=== PATIENT | female | born 1990 | race Caucasian/White ===

== ENCOUNTER → 2017-10-05 | Outpatient (CLI) | payer BC ==
[2017-10-05 17:03] LABS: ABSOLUTE BASOPHILS # (AUTO) 0.1 10^3/uL (0.0-0.2); ABSOLUTE EOSINOPHILS # (AUTO) 0.1 10^3/uL (0.0-0.6); ABSOLUTE LYMPHOCYTES (AUTO) 2.4 10^3/uL (0.5-4.7); ABSOLUTE MONOCYTES (AUTO) 0.7 10^3/uL (0.1-1.4); BASOPHILS % (AUTO) 0.9 % (0-2); EOSINOPHILS % (AUTO) 0.6 % (0-6); HEMATOCRIT 40.3 % (36.0-47.0); HEMOGLOBIN 13.7 g/dL (12.0-15.5); LYMPHOCYTES % (AUTO) 19.3 % (13-45); MEAN CORPUSCULAR HGB CONC 33.9 g/dL (32.0-36.0); MEAN CORPUSCULAR VOLUME 83 fl (80-97); MONOCYTES % (AUTO) 5.6 % (3-13); PLATELET COUNT 273 10^3/uL (150-450); RED BLOOD COUNT 4.88 10^6/uL (3.72-5.28); RED CELL DISTRIBUTION WIDTH 13.8 % (11.5-14.0); SEGMENTED NEUTROPHILS % (AUTO) 73.6 % (42-78); TOTAL CELLS COUNTED % (AUTO) 100 %; WHITE BLOOD COUNT 12.3 10^3/uL (4.0-10.5)
[2017-10-07 06:39] LABS: HEPATITIS C VIRUS AB <0.1 s/co ratio (0.0-0.9)
[2017-10-07 08:19] LABS: HEPATITS B SURFACE ANTIGEN Negative (Negative)
[2017-10-07 16:39] LABS: HGB A 97.2 % (96.4-98.8); HGB A2 2.8 % (1.8-3.2); HGB SOLUBILITY RESULT Negative (Negative)
== END ==
LOC: LAB 15:58
PROVIDERS: ATTEND Obstetrics & Gynecology
DX: Z34.01 Encounter for supervision of normal first pregnancy, first trimester (principal); Z13.29 Encounter for screening for other suspected endocrine disorder; Z13.0 Encounter for screening for diseases of the blood and blood-forming organs and certain disorders involving the immune mechanism; Z11.3 Encounter for screening for infections with a predominantly sexual mode of transmission; Z12.4 Encounter for screening for malignant neoplasm of cervix
CPT/HCPCS: 36415; 83020; 84443; 85025; 86592; 86701; 86762; 86803; 86804; 86850; 86900; 86901; 87086; 87340; 87491; 87591; 88142

== ENCOUNTER 2018-03-16 16:26 | Outpatient (CLI) | payer BC ==
[2018-03-16 17:12] LABS: ABSOLUTE BASOPHILS # (AUTO) 0.1 10^3/uL (0.0-0.2); ABSOLUTE LYMPHOCYTES (AUTO) 1.9 10^3/uL (0.5-4.7); ABSOLUTE MONOCYTES (AUTO) 0.8 10^3/uL (0.1-1.4); BASOPHILS % (AUTO) 0.4 % (0-2); EOSINOPHILS % (AUTO) 0.2 % (0-6); HEMATOCRIT 31.9 % (36.0-47.0); HEMOGLOBIN 10.5 g/dL (12.0-15.5); MEAN CORPUSCULAR HEMOGLOBIN 25.1 pg (27.0-33.4); MEAN CORPUSCULAR HGB CONC 32.8 g/dL (32.0-36.0); MEAN CORPUSCULAR VOLUME 77 fl (80-97); MONOCYTES % (AUTO) 6.3 % (3-13); PLATELET COUNT 198 10^3/uL (150-450); RED BLOOD COUNT 4.17 10^6/uL (3.72-5.28); RED CELL DISTRIBUTION WIDTH 15.1 % (11.5-14.0); SEGMENTED NEUTROPHILS % (AUTO) 78.1 % (42-78); TOTAL CELLS COUNTED % (AUTO) 100 %; WHITE BLOOD COUNT 12.8 10^3/uL (4.0-10.5)
[2018-03-16 17:18] LABS: APPEARANCE,URINE SLIGHTLY-CLOUDY; BILIRUBIN,URINE NEGATIVE (NEGATIVE); COLOR,URINE YELLOW; GLUCOSE, URINE NEGATIVE (NEGATIVE); KETONES,URINE NEGATIVE (NEGATIVE); LEUKOCYTE ESTERASE,URINE SMALL (NEGATIVE); NITRITE,URINE NEGATIVE (NEGATIVE); PROTEIN,URINE 30 mg/dL (NEGATIVE); URINE SPECIFIC GRAVITY 1.028; UROBILINOGEN,URINE NEGATIVE mg/dL (<2.0)
[2018-03-16 17:31] LABS: ALANINE AMINOTRANSFERASE 21 U/L (9-52); ALBUMIN 3.4 g/dL (3.5-5.0); ALKALINE PHOSPHATASE 142 U/L (38-126); ANION GAP 8 (5-19); ASPARTATE AMINO TRANSFERASE 16 U/L (14-36); BILIRUBIN,DIRECT 0.1 mg/dL (0.0-0.4); BILIRUBIN,TOTAL 0.2 mg/dL (0.2-1.3); BLOOD UREA NITROGEN 10 mg/dL (7-20); CALCIUM 9.3 mg/dL (8.4-10.2); CARBON DIOXIDE 19 mmol/L (22-30); CHLORIDE 108 mmol/L (98-107); GLUCOSE 90 mg/dL (75-110); POTASSIUM 3.9 mmol/L (3.6-5.0); SODIUM 135.4 mmol/L (137-145); TOTAL PROTEIN 5.8 g/dL (6.3-8.2)
[2018-03-16 17:33] LABS: UR PRO/CREAT RATIO RESULT 0.1 mg/mg (0.0-0.2); URINE CREATININE 162.8 mg/dL (16-327); URINE PROTEIN 9.6 mg/dL (<12)
[2018-03-16 17:38] LABS: URINE AMPHETAMINES SCREEN NEGATIVE; URINE BARBITURATES SCREEN NEGATIVE; URINE BENZODIAZEPINES SCREEN NEGATIVE; URINE COCAINE SCREEN NEGATIVE; URINE MARIJUANA (THC) SCREEN NEGATIVE; URINE METHADONE SCREEN NEGATIVE; URINE PHENCYCLIDINE SCREEN NEGATIVE
--- NOTE | 2018-03-16 18:24 | L&D Progress Notes ---
PROGRESS NOTES Datetime Report Generated by CPN: 03/16/2018 18:24 PROGRESS NOTE Procedures- Other: labs Plan Other: pre-eclampsia Vital Signs : Reviewed; Within Normal Limits Comment: Pt here today for pre-eclampsia work up sec to elevated BPs in the office. Avg BP at L_D 140s over 80s. Pt has a mild RIVERA, relieved with Tylenol. 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 She is also c/o bilateral upper flank pain. I believe that the pain is originating from her back and radiating. She believes the same. All of her Pre-e work up is negative. Her diagnosis is Gestational HTN at this time. Her BP is not at treatable ranges at this time. Pt has an appt next week for her 1 hr gtt. Pre-eclampsia precautions given. FETUS A FHR - Baseline: 130s Monitoring: External US Accelerations: 15X15 Decelerations: None FHR Category: Category I : 31.4 SIGNATURE SIGNATURE: 10,[id number] Signature: with User ID: [email or web address]
== END 2018-03-16 18:22 | disposition home or self-care (01) ==
LOC: LC 16:26
PROVIDERS: ATTEND Obstetrics & Gynecology
PROC: 4A1HXCZ Monitoring of Products of Conception, Cardiac Rate, External Approach (ICD-10-PCS; principal; 2018-03-16)
DX: O13.3 Gestational [pregnancy-induced] hypertension without significant proteinuria, third trimester (principal); Z3A.31 31 weeks gestation of pregnancy
CPT/HCPCS: 36415; 80053; 80307; 81005; 82570; 83615; 84156; 84550; 85025

== ENCOUNTER 2018-03-26 16:08 | Outpatient (CLI) | payer BC ==
[2018-03-26 16:52] LABS: URINE AMPHETAMINES SCREEN NEGATIVE; URINE BARBITURATES SCREEN NEGATIVE; URINE BENZODIAZEPINES SCREEN NEGATIVE; URINE COCAINE SCREEN NEGATIVE; URINE MARIJUANA (THC) SCREEN NEGATIVE; URINE METHADONE SCREEN NEGATIVE; URINE PHENCYCLIDINE SCREEN NEGATIVE
[2018-03-26 16:58] LABS: UR PRO/CREAT RATIO RESULT 0.2 mg/mg (0.0-0.2); URINE CREATININE 161.2 mg/dL (16-327); URINE PROTEIN 25.8 mg/dL (<12)
[2018-03-26 17:14] LABS: ABSOLUTE BASOPHILS # (AUTO) 0.1 10^3/uL (0.0-0.2); ABSOLUTE LYMPHOCYTES (AUTO) 2.2 10^3/uL (0.5-4.7); ABSOLUTE MONOCYTES (AUTO) 0.9 10^3/uL (0.1-1.4); ABSOLUTE NEUT (AUTO) 9.2 10^3/uL (1.7-8.2); BASOPHILS % (AUTO) 0.5 % (0-2); EOSINOPHILS % (AUTO) 0.3 % (0-6); HEMATOCRIT 32.2 % (36.0-47.0); HEMOGLOBIN 10.5 g/dL (12.0-15.5); MEAN CORPUSCULAR HEMOGLOBIN 24.7 pg (27.0-33.4); MEAN CORPUSCULAR HGB CONC 32.5 g/dL (32.0-36.0); MEAN CORPUSCULAR VOLUME 76 fl (80-97); MONOCYTES % (AUTO) 6.9 % (3-13); PLATELET COUNT 193 10^3/uL (150-450); RED BLOOD COUNT 4.24 10^6/uL (3.72-5.28); RED CELL DISTRIBUTION WIDTH 15.7 % (11.5-14.0); SEGMENTED NEUTROPHILS % (AUTO) 74.3 % (42-78); TOTAL CELLS COUNTED % (AUTO) 100 %; WHITE BLOOD COUNT 12.4 10^3/uL (4.0-10.5)
[2018-03-26 17:24] LABS: APPEARANCE,URINE TURBID; BILIRUBIN,URINE NEGATIVE (NEGATIVE); COLOR,URINE YELLOW; GLUCOSE, URINE NEGATIVE (NEGATIVE); KETONES,URINE NEGATIVE (NEGATIVE); LEUKOCYTE ESTERASE,URINE NEGATIVE (NEGATIVE); NITRITE,URINE NEGATIVE (NEGATIVE); PROTEIN,URINE 100 mg/dL (NEGATIVE); URINE SPECIFIC GRAVITY 1.028; UROBILINOGEN,URINE NEGATIVE mg/dL (<2.0)
[2018-03-26 17:37] LABS: ALANINE AMINOTRANSFERASE 27 U/L (9-52); ALBUMIN 3.5 g/dL (3.5-5.0); ALKALINE PHOSPHATASE 141 U/L (38-126); ANION GAP 7 (5-19); ASPARTATE AMINO TRANSFERASE 16 U/L (14-36); BILIRUBIN,DIRECT 0.1 mg/dL (0.0-0.4); BILIRUBIN,TOTAL 0.2 mg/dL (0.2-1.3); BLOOD UREA NITROGEN 11 mg/dL (7-20); CALCIUM 9.6 mg/dL (8.4-10.2); CARBON DIOXIDE 21 mmol/L (22-30); CHLORIDE 107 mmol/L (98-107); GLUCOSE 74 mg/dL (75-110); POTASSIUM 4.2 mmol/L (3.6-5.0); SODIUM 135.3 mmol/L (137-145); TOTAL PROTEIN 6.1 g/dL (6.3-8.2); URIC ACID 3.8 mg/dL (2.5-6.2)
--- NOTE | 2018-03-26 18:42 | Non Stress Test Report ---
Non Stress Test Datetime Report Generated by CPN: 03/26/2018 18:41 DEMOGRAPHIC EGA NST: 33.0 INDICATION Indication for Study: Ordered by Provider Indication for Study (NST) Other: pre e work up MONITORING Monitor Explained: Monitor Explained; Test Explained; Patient Verbalized Understanding Time on Monitor: 03/26/2018 16:27 Time off Monitor: 03/26/2018 18:12 NST Duration: 105 NST INTERVENTIONS NST Interventions: None Physician Notified NST: Dr. Stevens BABY A: [id number] BABY A Movement : Present Contraction Frequency : irregular FHR Baseline : 135 Accelerations : 15X15 Decelerations : None Variability : Moderate 6-25bpm NST Review: Meets Criteria for Reactive NST NST Review and Verified By : JESSE Garcia Results: Reactive NST REPORT Report Trigger: Send Report
== END 2018-03-26 18:23 | disposition home or self-care (01) ==
LOC: LC 16:08
PROVIDERS: ATTEND Obstetrics & Gynecology Gynecology
PROC: 4A1HXCZ Monitoring of Products of Conception, Cardiac Rate, External Approach (ICD-10-PCS; principal; 2018-03-26)
DX: O12.03 Gestational edema, third trimester (principal); O26.893 Other specified pregnancy related conditions, third trimester; R10.13 Epigastric pain; Z3A.33 33 weeks gestation of pregnancy
CPT/HCPCS: 36415; 59025; 80053; 80307; 81001; 82570; 83615; 84156; 84550; 85025

== ENCOUNTER 2018-03-30 08:43 | Outpatient (CLI) | payer BC ==
[2018-03-30 09:39] LABS: APPEARANCE,URINE CLEAR; BILIRUBIN,URINE NEGATIVE (NEGATIVE); COLOR,URINE DARK YELLOW; GLUCOSE, URINE NEGATIVE (NEGATIVE); KETONES,URINE NEGATIVE (NEGATIVE); LEUKOCYTE ESTERASE,URINE SMALL (NEGATIVE); NITRITE,URINE NEGATIVE (NEGATIVE); PROTEIN,URINE 100 mg/dL (NEGATIVE); URINE SPECIFIC GRAVITY 1.028; UROBILINOGEN,URINE NEGATIVE mg/dL (<2.0)
[2018-03-30 09:54] LABS: ABSOLUTE LYMPHOCYTES (AUTO) 1.2 10^3/uL (0.5-4.7); ABSOLUTE MONOCYTES (AUTO) 0.5 10^3/uL (0.1-1.4); ABSOLUTE NEUT (AUTO) 9.6 10^3/uL (1.7-8.2); BASOPHILS % (AUTO) 0.2 % (0-2); EOSINOPHILS % (AUTO) 0.2 % (0-6); HEMATOCRIT 31.2 % (36.0-47.0); HEMOGLOBIN 10.1 g/dL (12.0-15.5); MEAN CORPUSCULAR HEMOGLOBIN 24.9 pg (27.0-33.4); MEAN CORPUSCULAR HGB CONC 32.3 g/dL (32.0-36.0); MEAN CORPUSCULAR VOLUME 77 fl (80-97); MONOCYTES % (AUTO) 4.3 % (3-13); PLATELET COUNT 178 10^3/uL (150-450); RED BLOOD COUNT 4.04 10^6/uL (3.72-5.28); RED CELL DISTRIBUTION WIDTH 15.8 % (11.5-14.0); SEGMENTED NEUTROPHILS % (AUTO) 84.3 % (42-78); TOTAL CELLS COUNTED % (AUTO) 100 %; WHITE BLOOD COUNT 11.3 10^3/uL (4.0-10.5)
[2018-03-30 10:02] LABS: UR PRO/CREAT RATIO RESULT 0.2 mg/mg (0.0-0.2); URINE CREATININE 288.2 mg/dL (16-327); URINE PROTEIN 67.5 mg/dL (<12)
[2018-03-30 10:08] LABS: ALANINE AMINOTRANSFERASE 14 U/L (9-52); ALBUMIN 3.1 g/dL (3.5-5.0); ALKALINE PHOSPHATASE 117 U/L (38-126); ANION GAP 6 (5-19); ASPARTATE AMINO TRANSFERASE 16 U/L (14-36); BILIRUBIN,DIRECT 0.2 mg/dL (0.0-0.4); BILIRUBIN,TOTAL 0.3 mg/dL (0.2-1.3); BLOOD UREA NITROGEN 10 mg/dL (7-20); CALCIUM 9.3 mg/dL (8.4-10.2); CARBON DIOXIDE 22 mmol/L (22-30); CHLORIDE 108 mmol/L (98-107); GLUCOSE 110 mg/dL (75-110); POTASSIUM 3.9 mmol/L (3.6-5.0); SODIUM 135.8 mmol/L (137-145); TOTAL PROTEIN 5.7 g/dL (6.3-8.2); URIC ACID 4.1 mg/dL (2.5-6.2)
[2018-03-30 10:12] LABS: URINE AMPHETAMINES SCREEN NEGATIVE; URINE BARBITURATES SCREEN NEGATIVE; URINE BENZODIAZEPINES SCREEN NEGATIVE; URINE COCAINE SCREEN NEGATIVE; URINE MARIJUANA (THC) SCREEN NEGATIVE; URINE METHADONE SCREEN NEGATIVE; URINE PHENCYCLIDINE SCREEN NEGATIVE
--- NOTE | 2018-03-30 11:08 | Non Stress Test Report ---
Non Stress Test Datetime Report Generated by CPN: 03/30/2018 11:08 DEMOGRAPHIC EGA NST: 33.4 INDICATION Indication for Study: Ordered by Provider MONITORING Monitor Explained: Monitor Explained; Test Explained; Patient Verbalized Understanding Monitor Explained Other: see flowsheet Time on Monitor: 03/30/2018 09:36 Time off Monitor: 03/30/2018 09:56 NST Duration: 20 NST INTERVENTIONS NST Interventions: None Physician Notified NST: C. Mcleod, CNM BABY A: [id number] BABY A Movement : Present Contraction Frequency : none FHR Baseline : 135 Accelerations : 15X15 Decelerations : None Variability : Moderate 6-25bpm NST Review: Meets Criteria for Reactive NST NST Review and Verified By : YONI GAYLE RN NST Results: Reactive NST REPORT Report Trigger: Send Report
== END 2018-03-30 11:00 | disposition home or self-care (01) ==
LOC: LC 08:43
PROVIDERS: ATTEND Obstetrics & Gynecology Gynecology
PROC: 4A1HXCZ Monitoring of Products of Conception, Cardiac Rate, External Approach (ICD-10-PCS; principal; 2018-03-30)
DX: O14.93 Unspecified pre-eclampsia, third trimester (principal); Z3A.33 33 weeks gestation of pregnancy
CPT/HCPCS: 36415; 59025; 80053; 80307; 81001; 82570; 83615; 84156; 84550; 85025

== ENCOUNTER 2018-04-02 20:55 | Outpatient (CLI) | payer BC ==
[2018-04-02] MEDS ORDERED: BUTALB/ACETAMINOPHEN/CAFFEINE 1 TAB EACH ONE (21:20)
[2018-04-02 21:37] LABS: ABSOLUTE LYMPHOCYTES (AUTO) 1.9 10^3/uL (0.5-4.7); ABSOLUTE MONOCYTES (AUTO) 0.8 10^3/uL (0.1-1.4); ABSOLUTE NEUT (AUTO) 9.9 10^3/uL (1.7-8.2); BASOPHILS % (AUTO) 0.2 % (0-2); EOSINOPHILS % (AUTO) 0.2 % (0-6); HEMATOCRIT 28.6 % (36.0-47.0); HEMOGLOBIN 9.5 g/dL (12.0-15.5); LYMPHOCYTES % (AUTO) 14.8 % (13-45); MEAN CORPUSCULAR HEMOGLOBIN 25.1 pg (27.0-33.4); MEAN CORPUSCULAR VOLUME 76 fl (80-97); MONOCYTES % (AUTO) 6.4 % (3-13); PLATELET COUNT 163 10^3/uL (150-450); RED BLOOD COUNT 3.77 10^6/uL (3.72-5.28); RED CELL DISTRIBUTION WIDTH 16.1 % (11.5-14.0); SEGMENTED NEUTROPHILS % (AUTO) 78.4 % (42-78); TOTAL CELLS COUNTED % (AUTO) 100 %; WHITE BLOOD COUNT 12.6 10^3/uL (4.0-10.5)
[2018-04-02 21:37] LABS: APPEARANCE,URINE SLIGHTLY-CLOUDY; BILIRUBIN,URINE NEGATIVE (NEGATIVE); COLOR,URINE YELLOW; GLUCOSE, URINE NEGATIVE (NEGATIVE); KETONES,URINE NEGATIVE (NEGATIVE); LEUKOCYTE ESTERASE,URINE NEGATIVE (NEGATIVE); NITRITE,URINE NEGATIVE (NEGATIVE); PROTEIN,URINE >=500 mg/dL (NEGATIVE); URINE SPECIFIC GRAVITY 1.019; UROBILINOGEN,URINE NEGATIVE mg/dL (<2.0)
[2018-04-02 21:52] LABS: ALANINE AMINOTRANSFERASE 23 U/L (9-52); ALBUMIN 3.1 g/dL (3.5-5.0); ALKALINE PHOSPHATASE 123 U/L (38-126); ANION GAP 6 (5-19); ASPARTATE AMINO TRANSFERASE 15 U/L (14-36); BILIRUBIN,DIRECT 0.1 mg/dL (0.0-0.4); BILIRUBIN,TOTAL 0.2 mg/dL (0.2-1.3); BLOOD UREA NITROGEN 12 mg/dL (7-20); CALCIUM 9.4 mg/dL (8.4-10.2); CARBON DIOXIDE 22 mmol/L (22-30); CHLORIDE 108 mmol/L (98-107); GLUCOSE 111 mg/dL (75-110); POTASSIUM 3.9 mmol/L (3.6-5.0); SODIUM 135.5 mmol/L (137-145); TOTAL PROTEIN 5.6 g/dL (6.3-8.2); URIC ACID 4.3 mg/dL (2.5-6.2)
[2018-04-02 21:54] LABS: URINE CREATININE 90.7 mg/dL (16-327)
[2018-04-02 22:05] LABS: URINE AMPHETAMINES SCREEN NEGATIVE; URINE BARBITURATES SCREEN NEGATIVE; URINE BENZODIAZEPINES SCREEN NEGATIVE; URINE COCAINE SCREEN NEGATIVE; URINE MARIJUANA (THC) SCREEN NEGATIVE; URINE METHADONE SCREEN NEGATIVE; URINE PHENCYCLIDINE SCREEN NEGATIVE
[2018-04-02 22:15] LABS: UR PRO/CREAT RATIO RESULT 4.4 mg/mg (0.0-0.2); URINE PROTEIN 397.8 mg/dL (<12)
--- NOTE | 2018-04-02 23:05 | Non Stress Test Report ---
Non Stress Test Datetime Report Generated by CPN: 04/02/2018 23:05 DEMOGRAPHIC Test Number: 3 EGA NST: 34.0 INDICATION Indication for Study: Ordered by Provider URINE RESULTS Urine Glucose - NST: Positive MONITORING Monitor Explained: Monitor Explained; Test Explained; Patient Verbalized Understanding Time on Monitor: 04/02/2018 21:07 Time off Monitor: 04/02/2018 22:38 NST Duration: 91 NST INTERVENTIONS NST Interventions: PO Hydration; Reposition Patient Physician Notified NST: Dr. Douglas BABY A: [id number] BABY A Movement : Present Contraction Frequency : rare FHR Baseline : 135 Accelerations : 15X15 Decelerations : None Variability : Moderate 6-25bpm NST Review: Meets Criteria for Reactive NST NST Review and Verified By : Victor Hugo Lopez RN NST Results: Reactive NST REPORT Report Trigger: Send Report
== END 2018-04-02 22:53 | disposition home or self-care (01) ==
LOC: LC 20:55
PROVIDERS: ATTEND Obstetrics & Gynecology
PROC: 4A1HXCZ Monitoring of Products of Conception, Cardiac Rate, External Approach (ICD-10-PCS; principal; 2018-04-02)
DX: O14.93 Unspecified pre-eclampsia, third trimester (principal); Z3A.34 34 weeks gestation of pregnancy
CPT/HCPCS: 59025; 36415; 83615; 84156; 84550; 82570; 85025; 80053; 81001; 80307; J3490

== ENCOUNTER 2018-04-05 15:24 | Inpatient (IN) | payer BC ==
[2018-04-05] MEDS ORDERED: BETAMET ACET/BETAMET NA INJ 6 MG/1 ML IM ONE (16:01)
[2018-04-05] MEDS ORDERED: BETAMET ACET/BETAMET NA INJ 6 MG/1 ML ONE (16:20)
[2018-04-05 16:41] LABS: URINE AMPHETAMINES SCREEN NEGATIVE; URINE BENZODIAZEPINES SCREEN NEGATIVE; URINE COCAINE SCREEN NEGATIVE; URINE MARIJUANA (THC) SCREEN NEGATIVE; URINE METHADONE SCREEN NEGATIVE; URINE PHENCYCLIDINE SCREEN NEGATIVE
[2018-04-05 16:45] LABS: URINE BARBITURATES SCREEN UNCONFIRMED POSITIVE
[2018-04-05 16:54] LABS: ABSOLUTE LYMPHOCYTES (AUTO) 1.3 10^3/uL (0.5-4.7); ABSOLUTE MONOCYTES (AUTO) 0.7 10^3/uL (0.1-1.4); ABSOLUTE NEUT (AUTO) 9.8 10^3/uL (1.7-8.2); BASOPHILS % (AUTO) 0.1 % (0-2); EOSINOPHILS % (AUTO) 0.2 % (0-6); HEMATOCRIT 30.6 % (36.0-47.0); LYMPHOCYTES % (AUTO) 11.1 % (13-45); MEAN CORPUSCULAR HGB CONC 32.7 g/dL (32.0-36.0); MEAN CORPUSCULAR VOLUME 76 fl (80-97); PLATELET COUNT 165 10^3/uL (150-450); RED BLOOD COUNT 4.01 10^6/uL (3.72-5.28); RED CELL DISTRIBUTION WIDTH 15.6 % (11.5-14.0); SEGMENTED NEUTROPHILS % (AUTO) 82.6 % (42-78); TOTAL CELLS COUNTED % (AUTO) 100 %; WHITE BLOOD COUNT 11.9 10^3/uL (4.0-10.5)
[2018-04-05 16:56] LABS: URINE CREATININE 241.7 mg/dL (16-327)
[2018-04-05 17:12] LABS: ALANINE AMINOTRANSFERASE 14 U/L (9-52); ALBUMIN 3.3 g/dL (3.5-5.0); ALKALINE PHOSPHATASE 136 U/L (38-126); ANION GAP 8 (5-19); ASPARTATE AMINO TRANSFERASE 19 U/L (14-36); BILIRUBIN,DIRECT 0.2 mg/dL (0.0-0.4); BILIRUBIN,TOTAL 0.3 mg/dL (0.2-1.3); BLOOD UREA NITROGEN 12 mg/dL (7-20); CALCIUM 9.4 mg/dL (8.4-10.2); CARBON DIOXIDE 22 mmol/L (22-30); CHLORIDE 107 mmol/L (98-107); GLUCOSE 71 mg/dL (75-110); POTASSIUM 4.4 mmol/L (3.6-5.0); SODIUM 136.6 mmol/L (137-145); TOTAL PROTEIN 5.9 g/dL (6.3-8.2); URIC ACID 4.6 mg/dL (2.5-6.2)
[2018-04-05 17:48] LABS: UR PRO/CREAT RATIO RESULT 0.7 mg/mg (0.0-0.2); URINE PROTEIN 175.7 mg/dL (<12)
--- NOTE | 2018-04-05 18:53 | EKG REPORT ---
SEVERITY:- DEFECTIVE ECG - SINUS OR ECTOPIC ATRIAL TACHYCARDIA PROBABLE LEFT ATRIAL ABNORMALITY RIGHT AXIS DEVIATION (may be error, arm leads switched) LOW VOLTAGE IN FRONTAL LEADS BORDERLINE Q WAVES IN LATERAL LEADS LATERAL Q WAVES, PROBABLY NORMAL VARIATION : Confirmed by: Humphrey Nova MD 05-Apr-2018 18:52:35
--- NOTE | 2018-04-05 18:53 | RADIOLOGY REPORT (SQ) ---
EXAM DESCRIPTION: CHEST 2 VIEWS COMPLETED DATE/TIME: 04/05/2018 6:45 pm REASON FOR STUDY: PAandlat, Shield baby, R/O pulmenaryedema COMPARISON: None. EXAM PARAMETERS: NUMBER OF VIEWS: two views TECHNIQUE: Digital Frontal and Lateral radiographic views of the chest acquired. RADIATION DOSE: NA LIMITATIONS: none FINDINGS: LUNGS AND PLEURA: No opacities, masses or pneumothorax. No pleural effusion. MEDIASTINUM AND HILAR STRUCTURES: No masses or contour abnormalities. HEART AND VASCULAR STRUCTURES: Heart normal size. No evidence for failure. BONES: No acute findings. HARDWARE: None in the chest. OTHER: No other significant finding. IMPRESSION: NO ACUTE RADIOGRAPHIC FINDING IN THE CHEST. TECHNICAL DOCUMENTATION: JOB ID: [id number] [employer]- All Rights Reserved Reading location - IP/workstation name: [email or web address]
--- NOTE | 2018-04-05 20:05 | Non Stress Test Report ---
Non Stress Test Datetime Report Generated by CPN: 04/05/2018 20:05 DEMOGRAPHIC Test Number: 5 EGA NST: 34.3 EGA NST: 34.3 INDICATION Indication for Study: Ordered by Provider Indication for Study: Ordered by Provider Indication for Study (NST) Other: pih work up MONITORING Monitor Explained: Monitor Explained; Test Explained; Patient Verbalized Understanding Monitor Explained: Monitor Explained; Test Explained; Patient Verbalized Understanding Time on Monitor: 04/05/2018 19:25 Time on Monitor: 04/05/2018 15:45 Time off Monitor: 04/05/2018 19:53 NST Duration: 28 NST INTERVENTIONS NST Interventions: PO Hydration; Meal Given; Reposition Patient NST Interventions: PO Hydration; Reposition Patient Physician Notified NST: Dr. Elkins Physician Notified NST: C Mcleod CNM BABY A: [id number] BABY A Movement : Present Movement : Present Contraction Frequency : 0 FHR Baseline : 135 Accelerations : 15X15 Accelerations : 15X15 Decelerations : None Decelerations : None Variability : Moderate 6-25bpm Variability : Moderate 6-25bpm NST Review: Meets Criteria for Reactive NST NST Review: Meets Criteria for Reactive NST NST Review and Verified By : Verona Holland RN NST Results: Reactive NST Results: Reactive NST REPORT Report Trigger: Send Report
[2018-04-05] MEDS ORDERED: LABETALOL HCL 200 MG TABLET ONE (20:56)
[2018-04-05] MEDS: LABETALOL HCL 200 MG TABLET PO SCH (20:59)
--- NOTE | 2018-04-06 07:39 | EKG REPORT ---
SEVERITY:- OTHERWISE NORMAL ECG - SINUS TACHYCARDIA : Confirmed by: Humphrey Nova MD 06-Apr-2018 07:39:08
[2018-04-06] MEDS ORDERED: LABETALOL HCL 200 MG TABLET ONE (09:19)
[2018-04-06] MEDS: LABETALOL HCL 200 MG TABLET PO SCH ×2 (09:41→21:10)
--- NOTE | 2018-04-06 10:09 | Non Stress Test Report ---
Non Stress Test Datetime Report Generated by CPN: 04/06/2018 10:09 DEMOGRAPHIC EGA NST: 34.4 INDICATION Indication for Study: Ordered by Provider VITAL SIGNS Temperature - NST: 98.8 Pulse - NST: 120 RESP - NST: 18 NBPSYS NST: 124 NBPDIA NST: 64 MONITORING Monitor Explained: Monitor Explained; Test Explained; Patient Verbalized Understanding Time on Monitor: 04/06/2018 09:37 Time off Monitor: 04/06/2018 09:58 NST Duration: 21 NST INTERVENTIONS NST Interventions: PO Hydration Physician Notified NST: Dr Douglas BABY A Movement : Present Contraction Frequency : none FHR Baseline : 130 Accelerations : 15X15 Decelerations : None Variability : Moderate 6-25bpm NST Review: Meets Criteria for Reactive NST NST Review and Verified By : Eulalia Cole RN NST Results: Reactive NST REPORT Report Trigger: Send Report
--- NOTE | 2018-04-06 10:48 | PDOC PROGRESS REPORT ---
Subjective Progress Note for:: 04/06/18 Reason For Visit: IUP @ 34W3D - PRE-ECLAMPSIA and labile blood pressures with single functioning kidney Physical Exam - Physical Exam Vital Signs: Temp Pulse Resp BP Pulse Ox 120 H 18 124/64 04/06/18 08:00 04/06/18 08:00 04/06/18 08:00 Intake & Output 04/05/18 04/06/18 04/07/18 06:59 06:59 06:59 Weight 99.5 kg General appearance: PRESENT: no acute distress, cooperative GI/Abdominal exam: PRESENT: soft Extremities exam: PRESENT: full ROM, pedal edema, +1 edema Musculoskeletal exam: PRESENT: ambulatory Neurological exam: PRESENT: alert, awake, CN II-XII grossly intact - Obstetrical Exam Fundal Height: 3/u - 4/u Tender: No Result Laboratory Results: 04/05/18 16:29 04/05/18 16:29 04/05/18 04/05/18 16:29 16:29 WBC 11.9 H RBC 4.01 Hgb 10.0 L Hct 30.6 L MCV 76 L MCH 25.0 L MCHC 32.7 RDW 15.6 H Plt Count 165 Seg Neutrophils % 82.6 H Lymphocytes % 11.1 L Monocytes % 6.0 Eosinophils % 0.2 Basophils % 0.1 Absolute Neutrophils 9.8 H Absolute Lymphocytes 1.3 Absolute Monocytes 0.7 Absolute Eosinophils 0.0 Absolute Basophils 0.0 Sodium 136.6 L Potassium 4.4 Chloride 107 Carbon Dioxide 22 Anion Gap 8 BUN 12 Creatinine 0.56 Est GFR ( Amer) > 60 Est GFR (Non-Af Amer) > 60 Glucose 71 L Uric Acid 4.6 Calcium 9.4 Total Bilirubin 0.3 AST 19 ALT 14 Alkaline Phosphatase 136 H Total Protein 5.9 L Albumin 3.3 L Impressions: Chest X-Ray 04/05/18 00:00 IMPRESSION: NO ACUTE RADIOGRAPHIC FINDING IN THE CHEST. Assessment & Plan - Diagnosis (1) Pre-eclampsia affecting , antepartum Is this a current diagnosis for this admission?: Yes (2) Qualifiers: Weeks of gestation: 34 weeks Qualified Code(s): Z3A.34 - 34 weeks gestation of Is this a current diagnosis for this admission?: Yes (3) Non-functioning kidney Is this a current diagnosis for this admission?: Yes - Time Time Spent with patient: Less than 15 minutes Within: Other - Inpatient Certification Based on my medical assessment, after consideration of the patient's comorbidities, presenting symptoms, or acuity I expect that the services needed warrant INPATIENT care.: Yes I certify that my determination is in accordance with my understanding of Medicare's requirements for reasonable and necessary INPATIENT services [42 CFR 412.3e].: Yes Medical Necessity: Failure to Improve With Outpatient Therapy, Need Close Monitoring Due to Risk of Patient Decompensation - Plan Summary Plan Summary: patient no longer feasible for outpatient management and will continue with monitor/manage blood pressure and symptoms. Continue with q shift NSTs and complete her new 24 hour urine. Medical consult done due to patient c/o SOB and ekg that was slightly anormal, however repeat nst was normal except for sinus tachycardia. No recs at this time. Patient's condition is concerning for rapid decompensation therefore, close monitoring in the hospital necessary until delivery. Delivery is tentatively planned for 37 wks but if need will deliver early based on clinicals signs/symptoms.
--- NOTE | 2018-04-06 13:17 | PDOC CONSULTATION ---
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 The patient has reported intermittent dyspnea; describing shortness of breath while at rest, worsened when lying flat, and with minimal exertion. Of note, the patient is overweight and 34 weeks gestation. She denies associated chest pain or palpitations. She does confirm slight rhinorrhea, postnasal drip, and a nonproductive cough. She did receive her influenza immunization this year, however, has multiple exposures that she works as a nurse in a hospital setting. She denies fever, chills, headache, dizziness, abdominal pain, nausea, vomiting, diarrhea. The hospitalist service was consulted for EKG review and evaluation for non- related causes of her shortness of breath. Past Medical History Cardiac Medical History: Denies: Hyperlipidema, Hypertension, Pulmonary Embolism Pulmonary Medical History: Denies: Asthma, Chronic Obstructive Pulmonary Disease (COPD) Neurological Medical History: Reports: None Endocrine Medical History: Reports: Obesity Renal/ Medical History: Reports: Other - reported Rt kidney failure Malignancy Medical History: Reports: Skin Cancer GI Medical History: Reports: None Musculoskeltal Medical History: Reports: None Skin Medical History: Reports: None Psychiatric Medical History: Reports: None Traumatic Medical History: Reports: None Hematology: Reports: None Infectious Medical History: Reports: None Past Surgical History Past Surgical History: Reports: None Social History Information Source: Patient Lives with: Family Smoking Status: Never Smoker Frequency of Alcohol Use: None Hx Recreational Drug Use: No Hx Prescription Drug Abuse: No - Advance Directive Resuscitation Status: Full Code Family History Family History: CAD, Hyperlipidemia, Hypertension, Malignancy Parental Family History Reviewed: Yes Children Family History Reviewed: NA Sibling(s) Family History Reviewed.: Yes Medication/Allergy Home Medications: No122/Iron/Folic Acid [ Multi Tablet] 1 each PO DAILY 03/16/18 Acetaminophen [Tylenol] 1,000 mg PO PRN PRN 04/02/18 Labetalol HCl 100 mg PO BID 04/02/18 Allergies/Adverse Reactions: Gadolinium-Containing Contrast Medi Allergy (Verified 04/05/18 15:36) Anaphylaxis Review of Systems Constitutional: ABSENT: chills, fever(s), headache(s), weight gain, weight loss Eyes: ABSENT: visual disturbances Ears: ABSENT: hearing changes Cardiovascular: PRESENT: dyspnea on exertion, edema, orthropnea. ABSENT: chest pain, palpitations Respiratory: PRESENT: cough, dyspnea. ABSENT: hemoptysis Gastrointestinal: PRESENT: heartburn. ABSENT: abdominal pain, constipation, diarrhea, hematemesis, hematochezia, nausea, vomiting Genitourinary: ABSENT: dysuria, hematuria Musculoskeletal: ABSENT: joint swelling Integumentary: ABSENT: rash, wounds Neurological: ABSENT: abnormal gait, abnormal speech, confusion, dizziness, focal weakness, syncope Psychiatric: ABSENT: anxiety, depression, homidical ideation, suicidal ideation Endocrine: ABSENT: cold intolerance, heat intolerance, polydipsia, polyuria Hematologic/Lymphatic: ABSENT: easy bleeding, easy bruising Physical Exam Vital Signs: Temp Pulse Resp BP Pulse Ox 120 H 18 124/64 04/06/18 08:00 04/06/18 08:00 04/06/18 08:00 Intake & Output 04/05/18 04/06/18 04/07/18 06:59 06:59 06:59 Weight 99.5 kg General appearance: PRESENT: no acute distress, cooperative, obese, well- developed, well-nourished Head exam: PRESENT: atraumatic, normocephalic Eye exam: PRESENT: conjunctiva pink, EOMI, PERRLA. ABSENT: scleral icterus Ear exam: PRESENT: normal external ear exam Mouth exam: PRESENT: moist, tongue midline Neck exam: ABSENT: carotid bruit, JVD, lymphadenopathy, thyromegaly Respiratory exam: PRESENT: clear to auscultation christopher, symmetrical, unlabored. ABSENT: rales, rhonchi, wheezes Cardiovascular exam: PRESENT: +S1, +S2, tachycardia - HR<110 at rest. ABSENT: diastolic murmur, rubs, systolic murmur Pulses: PRESENT: normal dorsalis pedis pul Vascular exam: PRESENT: normal capillary refill GI/Abdominal exam: PRESENT: normal bowel sounds, soft. ABSENT: distended, guarding, mass, organolmegaly, rebound, tenderness Rectal exam: PRESENT: deferred Gentrourinary exam: PRESENT: other - Extremities exam: PRESENT: full ROM, pedal edema - +3 nonpitting. ABSENT: calf tenderness, clubbing Musculoskeletal exam: PRESENT: ambulatory Neurological exam: PRESENT: alert, awake, oriented to person, oriented to place, oriented to time, oriented to situation, CN II-XII grossly intact. ABSENT: motor sensory deficit Psychiatric exam: PRESENT: anxious, appropriate affect, normal mood. ABSENT: homicidal ideation, suicidal ideation Skin exam: PRESENT: dry, intact, warm. ABSENT: cyanosis, rash Results Laboratory Results: 04/05/18 16:29 04/05/18 16:29 04/05/18 04/05/18 16:29 16:29 WBC 11.9 H RBC 4.01 Hgb 10.0 L Hct 30.6 L MCV 76 L MCH 25.0 L MCHC 32.7 RDW 15.6 H Plt Count 165 Seg Neutrophils % 82.6 H Lymphocytes % 11.1 L Monocytes % 6.0 Eosinophils % 0.2 Basophils % 0.1 Absolute Neutrophils 9.8 H Absolute Lymphocytes 1.3 Absolute Monocytes 0.7 Absolute Eosinophils 0.0 Absolute Basophils 0.0 Sodium 136.6 L Potassium 4.4 Chloride 107 Carbon Dioxide 22 Anion Gap 8 BUN 12 Creatinine 0.56 Est GFR ( Amer) > 60 Est GFR (Non-Af Amer) > 60 Glucose 71 L Uric Acid 4.6 Calcium 9.4 Total Bilirubin 0.3 AST 19 ALT 14 Alkaline Phosphatase 136 H Total Protein 5.9 L Albumin 3.3 L Impressions: Chest X-Ray 04/05/18 00:00 IMPRESSION: NO ACUTE RADIOGRAPHIC FINDING IN THE CHEST. Assessment & Plan - Diagnosis (1) Dyspnea Qualifiers: Dyspnea type: unspecified Qualified Code(s): R06.00 - Dyspnea, unspecified Is this a current diagnosis for this admission?: Yes Plan: The patient reports intermittent dyspnea; experienced while at rest, worsens with lying supine and with minimal exertion. She denies associated headache, dizziness, chest pain and palpitations. EKG demonstrates sinus tachycardia with heart rate 111; otherwise normal. Chest x-ray is benign. The patient is currently asymptomatic and maintaining oxygen saturations on room air. As the patient is overweight and 34 weeks gestation, her symptoms are likely physiological related to her . However, due to her she is also at increased risk for pulmonary embolus and cardiomyopathies. No further workup indicated at this time. Recommend continued close monitoring and should the patient develop hypoxia obtain VQ scan and echocardiogram to evaluate for both. We will sign off; please reconsult if the hospitalist team can provide any further assistance. (2) Tachycardia Is this a current diagnosis for this admission?: Yes Plan: Secondary to . Likely also worsened by situational anxiety. Primary management per to CLINICAL ACCOUNT LIAISON's expertise. Patient declined cardiac history; however, is noted to be prescribed Labetalol 100 mg twice daily. (Possibly prescribed for PIH?) Labetalol will assist in moderating heart rate as well. Continue at OBGYN's discretion for management of preeclampsia related hypertension. Further recommendations as above. (3) Anemia Qualifiers: Anemia type: unspecified type Qualified Code(s): D64.9 - Anemia, unspecified Is this a current diagnosis for this admission?: Yes Plan: Have started multivitamin w/ iron supplementation. Will ask the registered account administrator to make recommendations. (4) Pre-eclampsia affecting , antepartum Is this a current diagnosis for this admission?: Yes Plan: Management per OBGYN. (5) Non-functioning kidney Is this a current diagnosis for this admission?: Yes Plan: Per patient report; rt kidney is non-functioning following pyelonephritis/sepsis in her teens. She reports that she saw urology and nephrology following the illness but has not been followed by either for several years. Creatinine is stable at 0.56, BUN 12, eGFR >60. Recommend avoiding nephrotoxic medications as able. Recommend avoiding hypotensive episodes. Recommend daily chemistries. Recommend obtaining renal ultrasound and early consultation with nephrology should she develop an acute kidney injury. Will sign off; please reconsult if the hospitalist team can provide any further assistance. - Time Time Spent: 30 to 50 Minutes Medications reviewed and adjusted accordingly: Yes
[2018-04-06] MEDS: CALCIUM CARBONATE 500 MG TAB.CHEW PO SCH ×3 (13:23→22:07)
[2018-04-06] MEDS: MULTIVITAMINS W-IRON TABLET, CHEWABLE PO SCH (15:08)
[2018-04-06] MEDS: ACETAMINOPHEN 325 MG TABLET PO PRN ×2 (17:13→23:13)
[2018-04-06 17:29] LABS: 24 HOUR URINE PROTEIN RESULT 7099 mg/day (42-225); URINE PROTEIN 806.7 mg/dL (<12)
[2018-04-06] MEDS: DIPHENHYDRAMINE HCL 25 MG CAPSULE PO SCH (22:07)
[2018-04-07] MEDS: ACETAMINOPHEN 325 MG TABLET PO PRN ×2 (06:20→13:18)
[2018-04-07] MEDS: CALCIUM CARBONATE 500 MG TAB.CHEW PO SCH ×4 (08:11→21:13)
--- NOTE | 2018-04-07 08:45 | PDOC PROGRESS REPORT ---
Subjective Progress Note for:: 04/07/18 Subjective:: Patient states that she feels good. Patient denies headaches, vision changes and right upper quadrant tenderness. Patient reports good movement. She has no complaints of contractions. However, she is complaining of a productive cough and nasal congestion. Reason For Visit: IUP @ 34W3D - PRE-ECLAMPSIA Physical Exam - Physical Exam Vital Signs: Temp Pulse Resp BP Pulse Ox 98.9 F 99 20 128/73 H 96 04/07/18 03:24 04/07/18 03:24 04/07/18 03:24 04/07/18 03:24 04/07/18 03:24 Intake & Output 04/06/18 04/07/18 04/08/18 06:59 06:59 06:59 Intake Total 2400 Balance 2400 Weight 99.5 kg 82.9 kg General appearance: PRESENT: no acute distress Respiratory exam: PRESENT: clear to auscultation christopher Cardiovascular exam: PRESENT: RRR GI/Abdominal exam: PRESENT: normal bowel sounds, soft Extremities exam: ABSENT: calf tenderness, clubbing - will place ZANE hose, full ROM, joint swelling, pedal edema, tenderness, +1 edema, +2 edema, other Result Laboratory Results: 04/05/18 16:29 04/05/18 16:29 04/06/18 15:39 Ur 24 Hour Volume 880 Ur Total Protein 24 Hr 7099 H Impressions: Chest X-Ray 04/05/18 00:00 IMPRESSION: NO ACUTE RADIOGRAPHIC FINDING IN THE CHEST. Assessment & Plan - Diagnosis (1) Anemia Qualifiers: Anemia type: iron deficiency Iron deficiency anemia type: unspecified iron deficiency Qualified Code(s): D50.9 - Iron deficiency anemia, unspecified Is this a current diagnosis for this admission?: Yes (2) Non-functioning kidney Is this a current diagnosis for this admission?: Yes (3) Pre-eclampsia affecting , antepartum Is this a current diagnosis for this admission?: Yes (4) Qualifiers: Weeks of gestation: 34 weeks Qualified Code(s): Z3A.34 - 34 weeks gestation of Is this a current diagnosis for this admission?: Yes - Time Time Spent with patient: 15-24 minutes - Plan Summary Plan Summary: 1. Continue current care 2. Place ZANE hose 3. Zantac for indigestion 4. Address URI--Robitussin and decongestant
[2018-04-07] MEDS: CHLORPHENIRAMINE MALEATE 4 MG TABLET PO PRN ×2 (08:57→17:23)
[2018-04-07] MEDS: FAMOTIDINE 20 MG TABLET PO SCH ×2 (09:54→21:13)
[2018-04-07] MEDS: LABETALOL HCL 200 MG TABLET PO SCH ×2 (09:55→21:13)
[2018-04-07] MEDS: MULTIVITAMINS W-IRON TABLET, CHEWABLE PO SCH (09:57)
[2018-04-07] MEDS: GUAIFENESIN SYRP 200 MG/10 ML UDC PO PRN (15:51)
[2018-04-07] MEDS: DIPHENHYDRAMINE HCL 25 MG CAPSULE PO SCH (21:13)
[2018-04-08] MEDS: CHLORPHENIRAMINE MALEATE 4 MG TABLET PO PRN ×3 (03:50→19:33)
[2018-04-08] MEDS: GUAIFENESIN SYRP 200 MG/10 ML UDC PO PRN (03:50)
[2018-04-08 06:56] LABS: ABSOLUTE LYMPHOCYTES (AUTO) 1.2 10^3/uL (0.5-4.7); ABSOLUTE MONOCYTES (AUTO) 0.8 10^3/uL (0.1-1.4); ABSOLUTE NEUT (AUTO) 8.5 10^3/uL (1.7-8.2); BASOPHILS % (AUTO) 0.5 % (0-2); HEMATOCRIT 27.9 % (36.0-47.0); HEMOGLOBIN 9.3 g/dL (12.0-15.5); LYMPHOCYTES % (AUTO) 11.2 % (13-45); MEAN CORPUSCULAR HEMOGLOBIN 25.4 pg (27.0-33.4); MEAN CORPUSCULAR HGB CONC 33.3 g/dL (32.0-36.0); MEAN CORPUSCULAR VOLUME 76 fl (80-97); MONOCYTES % (AUTO) 7.8 % (3-13); PLATELET COUNT 131 10^3/uL (150-450); RED BLOOD COUNT 3.67 10^6/uL (3.72-5.28); RED CELL DISTRIBUTION WIDTH 16.4 % (11.5-14.0); SEGMENTED NEUTROPHILS % (AUTO) 80.5 % (42-78); TOTAL CELLS COUNTED % (AUTO) 100 %; WHITE BLOOD COUNT 10.5 10^3/uL (4.0-10.5)
[2018-04-08 07:11] LABS: ALANINE AMINOTRANSFERASE 18 U/L (9-52); ALBUMIN 2.7 g/dL (3.5-5.0); ALKALINE PHOSPHATASE 114 U/L (38-126); ANION GAP 10 (5-19); ASPARTATE AMINO TRANSFERASE 18 U/L (14-36); BILIRUBIN,DIRECT 0.2 mg/dL (0.0-0.4); BILIRUBIN,TOTAL 0.3 mg/dL (0.2-1.3); BLOOD UREA NITROGEN 11 mg/dL (7-20); CALCIUM 8.1 mg/dL (8.4-10.2); CARBON DIOXIDE 18 mmol/L (22-30); CHLORIDE 109 mmol/L (98-107); GLUCOSE 74 mg/dL (75-110); POTASSIUM 4.1 mmol/L (3.6-5.0); SODIUM 136.8 mmol/L (137-145); TOTAL PROTEIN 4.8 g/dL (6.3-8.2); URIC ACID 5.5 mg/dL (2.5-6.2)
--- NOTE | 2018-04-08 08:44 | PDOC PROGRESS REPORT ---
Subjective Progress Note for:: 04/08/18 Subjective:: pt feels stuffy and states she have difficulty breathing Reason For Visit: IUP @ 34W3D - PRE-ECLAMPSIA Physical Exam - Physical Exam Vital Signs: Temp Pulse Resp BP Pulse Ox 98.2 F 98 18 156/90 H 99 04/08/18 07:29 04/08/18 07:29 04/08/18 07:29 04/08/18 07:29 04/08/18 07:29 Intake & Output 04/07/18 04/08/18 04/09/18 06:59 06:59 06:59 Intake Total 2400 1300 Balance 2400 1300 Weight 82.9 kg 97.4 kg General appearance: PRESENT: no acute distress Respiratory exam: PRESENT: clear to auscultation christopher Extremities exam: PRESENT: +1 edema Result Laboratory Results: 04/08/18 06:20 04/08/18 06:20 04/08/18 04/08/18 06:20 06:20 WBC 10.5 RBC 3.67 L Hgb 9.3 L Hct 27.9 L MCV 76 L MCH 25.4 L MCHC 33.3 RDW 16.4 H Plt Count 131 L Seg Neutrophils % 80.5 H Lymphocytes % 11.2 L Monocytes % 7.8 Eosinophils % 0.0 Basophils % 0.5 Absolute Neutrophils 8.5 H Absolute Lymphocytes 1.2 Absolute Monocytes 0.8 Absolute Eosinophils 0.0 Absolute Basophils 0.0 Sodium 136.8 L Potassium 4.1 Chloride 109 H Carbon Dioxide 18 L Anion Gap 10 BUN 11 Creatinine 0.56 Est GFR ( Amer) > 60 Est GFR (Non-Af Amer) > 60 Glucose 74 L Uric Acid 5.5 Calcium 8.1 L Total Bilirubin 0.3 AST 18 ALT 18 Alkaline Phosphatase 114 Total Protein 4.8 L Albumin 2.7 L 04/05/18 17:02 Vaginal/Anorectal Group B Streptococcus Culture - Final GROUP B BETA HEMOLYTIC STREPTOCOCCUS RECOVERED Impressions: Chest X-Ray 04/05/18 00:00 IMPRESSION: NO ACUTE RADIOGRAPHIC FINDING IN THE CHEST. Assessment & Plan - Diagnosis (1) Pre-eclampsia affecting , antepartum Is this a current diagnosis for this admission?: Yes - Plan Summary Plan Summary: discussed end point with pt and balance of early delivery and and expectant management. We will continue to observe until either indication for delivery or 36-37 weeks gestation
[2018-04-08] MEDS: MULTIVITAMINS W-IRON TABLET, CHEWABLE PO SCH (09:38)
[2018-04-08] MEDS: CALCIUM CARBONATE 500 MG TAB.CHEW PO SCH ×4 (09:38→22:01)
[2018-04-08] MEDS: ACETAMINOPHEN 325 MG TABLET PO PRN ×2 (09:38→18:33)
[2018-04-08] MEDS: FAMOTIDINE 20 MG TABLET PO SCH ×2 (09:38→22:01)
[2018-04-08] MEDS: LABETALOL HCL 200 MG TABLET PO SCH ×2 (09:40→22:01)
[2018-04-08] MEDS: SODIUM CHLORIDE NASAL SPRAY 44 ML NASL SCH ×3 (12:19→22:00)
--- NOTE | 2018-04-08 15:00 | PDOC CONSULTATION ---
Consultation Consult Date: 04/08/18 Attending physician:: ALO VELAZQUEZ Consult reason:: Upper respiratory congestion History of Present Illness Admission Date/PCP: 04/05/18 16:45 History of Present Illness: SADIE SWEET is a 27 year old female, who is 34 weeks and hospitalized with preeclampsia. She is being managed in the hospital by her police lieutenant. They asked us to see her because of complaints of upper respiratory congestion, cough, sinus pressure and ear pain. She states she has had upper respiratory symptoms for the last 6 days. They have worsened over the last 24 hours. She is running low-grade fevers. She is now having cough with thick green sputum raised. She has been taking Robitussin cough syrup and Chlor-Trimeton for nasal congestion. She states she has now increasing pain in her ears and sinus pressure. She states she has been exposed to several people who have upper respiratory infections or the flu. She did get a flu shot. She is employed as an RN Past Medical History Cardiac Medical History: Denies: Hyperlipidema, Hypertension, Pulmonary Embolism Pulmonary Medical History: Denies: Asthma, Chronic Obstructive Pulmonary Disease (COPD) EENT Medical History: Reports: None Neurological Medical History: Reports: None Endocrine Medical History: Reports: Obesity Renal/ Medical History: Reports: Other - reported Rt kidney failure Malignancy Medical History: Reports: Skin Cancer GI Medical History: Reports: None Musculoskeltal Medical History: Reports: None Skin Medical History: Reports: None Psychiatric Medical History: Reports: None Traumatic Medical History: Reports: None Hematology: Reports: None Infectious Medical History: Reports: None Past Surgical History Past Surgical History: Reports: None Social History Information Source: Patient Lives with: Family Smoking Status: Never Smoker Frequency of Alcohol Use: None Hx Recreational Drug Use: No Drugs: None Hx Prescription Drug Abuse: No - Advance Directive Resuscitation Status: Full Code Family History Family History: CAD, Hyperlipidemia, Hypertension, Malignancy Parental Family History Reviewed: Yes Children Family History Reviewed: NA Sibling(s) Family History Reviewed.: Yes Medication/Allergy Home Medications: No122/Iron/Folic Acid [ Multi Tablet] 1 each PO DAILY 03/16/18 Acetaminophen [Tylenol] 1,000 mg PO PRN PRN 04/02/18 Labetalol HCl 100 mg PO BID 04/02/18 Allergies/Adverse Reactions: Gadolinium-Containing Contrast Medi Allergy (Verified 04/05/18 15:36) Anaphylaxis Review of Systems Constitutional: PRESENT: chills, fever(s), headache(s) Eyes: ABSENT: visual disturbances Ears: PRESENT: other - Right ear pain Nose, Mouth, and Throat: PRESENT: headache(s), sore throat Cardiovascular: ABSENT: chest pain, dyspnea on exertion, edema, orthropnea, palpitations Respiratory: PRESENT: cough, sputum - Yellow-green in color Gastrointestinal: ABSENT: abdominal pain, constipation, diarrhea, hematemesis, hematochezia, nausea, vomiting Genitourinary: ABSENT: dysuria, hematuria Musculoskeletal: ABSENT: joint swelling Integumentary: ABSENT: rash, wounds Psychiatric: ABSENT: anxiety, depression, homidical ideation, suicidal ideation Endocrine: ABSENT: cold intolerance, heat intolerance, polydipsia, polyuria Hematologic/Lymphatic: ABSENT: easy bleeding, easy bruising Physical Exam Vital Signs: Temp Pulse Resp BP Pulse Ox 98.3 F 99 18 133/85 H 99 04/08/18 12:07 04/08/18 12:07 04/08/18 12:07 04/08/18 12:07 04/08/18 12:07 Intake & Output 04/07/18 04/08/18 04/09/18 06:59 06:59 06:59 Intake Total 2400 1300 Balance 2400 1300 Weight 82.9 kg 97.4 kg General appearance: PRESENT: no acute distress, obese, well-developed, well- nourished Head exam: PRESENT: atraumatic, normocephalic Eye exam: PRESENT: conjunctiva pink, EOMI, PERRLA. ABSENT: scleral icterus Ear exam: PRESENT: other - Right TM erythemic with moderate to large serous effusion. Left TM with moderate effusion Mouth exam: PRESENT: moist, neck supple, tongue midline Throat exam: PRESENT: post pharyngeal erythema Neck exam: ABSENT: carotid bruit, JVD, lymphadenopathy, thyromegaly Respiratory exam: PRESENT: clear to auscultation christopher, symmetrical, unlabored Cardiovascular exam: PRESENT: RRR. ABSENT: diastolic murmur, rubs, systolic murmur Pulses: PRESENT: normal dorsalis pedis pul Vascular exam: PRESENT: normal capillary refill GI/Abdominal exam: PRESENT: normal bowel sounds, soft. ABSENT: distended, guarding, mass, organolmegaly, rebound, tenderness Rectal exam: PRESENT: deferred Extremities exam: PRESENT: full ROM. ABSENT: calf tenderness, clubbing, pedal edema Musculoskeletal exam: PRESENT: ambulatory, full ROM, normal inspection Neurological exam: PRESENT: alert, awake, oriented to person, oriented to place, oriented to time, oriented to situation, CN II-XII grossly intact. ABSENT: motor sensory deficit Psychiatric exam: PRESENT: appropriate affect, normal mood. ABSENT: homicidal ideation, suicidal ideation Results Laboratory Results: 04/08/18 06:20 04/08/18 06:20 04/08/18 04/08/18 06:20 06:20 WBC 10.5 RBC 3.67 L Hgb 9.3 L Hct 27.9 L MCV 76 L MCH 25.4 L MCHC 33.3 RDW 16.4 H Plt Count 131 L Seg Neutrophils % 80.5 H Lymphocytes % 11.2 L Monocytes % 7.8 Eosinophils % 0.0 Basophils % 0.5 Absolute Neutrophils 8.5 H Absolute Lymphocytes 1.2 Absolute Monocytes 0.8 Absolute Eosinophils 0.0 Absolute Basophils 0.0 Sodium 136.8 L Potassium 4.1 Chloride 109 H Carbon Dioxide 18 L Anion Gap 10 BUN 11 Creatinine 0.56 Est GFR ( Amer) > 60 Est GFR (Non-Af Amer) > 60 Glucose 74 L Uric Acid 5.5 Calcium 8.1 L Total Bilirubin 0.3 AST 18 ALT 18 Alkaline Phosphatase 114 Total Protein 4.8 L Albumin 2.7 L 04/05/18 17:02 Vaginal/Anorectal Group B Streptococcus Culture - Final GROUP B BETA HEMOLYTIC STREPTOCOCCUS RECOVERED Impressions: Chest X-Ray 04/05/18 00:00 IMPRESSION: NO ACUTE RADIOGRAPHIC FINDING IN THE CHEST. Assessment & Plan - Diagnosis (1) Acute sinusitis Qualifiers: Recurrence: not specified as recurrent Is this a current diagnosis for this admission?: Yes Plan: Patient on Augmentin 500 mg 3 times daily for 10 days. Flonase 1 spray twice daily next 7 days. Continue Chlor-Trimeton congestion. (2) Acute bronchitis Is this a current diagnosis for this admission?: Yes Plan: Continue Robitussin cough syrup prn (3) Right otitis media with effusion Is this a current diagnosis for this admission?: Yes Plan: Augmentin and Flonase - Time Time Spent: 30 to 50 Minutes Medications reviewed and adjusted accordingly: Yes Anticipated discharge: Home
[2018-04-08] MEDS: AMOXICILLIN TR/POT CLAVULANATE 500-125 MG TAB PO SCH ×2 (15:09→22:01)
[2018-04-08] MEDS ORDERED: HYDROXYZINE PAMOATE 50 MG CAPSULE PO ONE (17:30)
[2018-04-08] MEDS: FLUTICASONE NASAL SPRAY 50 MCG/SPRY 120 SPRAY/16 GM NASL SCH (22:00)
[2018-04-08] MEDS: DIPHENHYDRAMINE HCL 25 MG CAPSULE PO SCH (22:01)
[2018-04-09] MEDS: ACETAMINOPHEN 325 MG TABLET PO PRN ×3 (00:22→15:09)
[2018-04-09] MEDS: GUAIFENESIN SYRP 200 MG/10 ML UDC PO PRN (00:22)
[2018-04-09] MEDS: AMOXICILLIN TR/POT CLAVULANATE 500-125 MG TAB PO SCH ×2 (06:30→13:35)
[2018-04-09] MEDS: MULTIVITAMINS W-IRON TABLET, CHEWABLE PO SCH (09:36)
[2018-04-09] MEDS: CALCIUM CARBONATE 500 MG TAB.CHEW PO SCH ×3 (09:36→17:11)
[2018-04-09] MEDS: FLUTICASONE NASAL SPRAY 50 MCG/SPRY 120 SPRAY/16 GM NASL SCH (09:37)
[2018-04-09] MEDS: SODIUM CHLORIDE NASAL SPRAY 44 ML NASL SCH ×3 (09:37→15:08)
[2018-04-09] MEDS: LABETALOL HCL 200 MG TABLET PO SCH (10:04)
[2018-04-09] MEDS: FAMOTIDINE 20 MG TABLET PO SCH (10:04)
--- NOTE | 2018-04-09 11:11 | PDOC PROGRESS REPORT ---
Subjective Progress Note for:: 04/09/18 Subjective:: She is concerned about her kidney and the . Reason For Visit: IUP @ 34W3D - PRE-ECLAMPSIA Physical Exam - Physical Exam Vital Signs: Temp Pulse Resp BP Pulse Ox 96.6 F L 67 20 140/88 H 99 04/09/18 08:00 04/09/18 08:00 04/09/18 08:00 04/09/18 08:00 04/09/18 08:00 Intake & Output 04/08/18 04/09/18 04/10/18 06:59 06:59 06:59 Intake Total 1300 2100 Balance 1300 2100 Weight 97.4 kg 100 kg General appearance: PRESENT: no acute distress, well-developed, well-nourished Head exam: PRESENT: atraumatic, normocephalic Respiratory exam: PRESENT: other - Lungs are clear bilaterally Cardiovascular exam: PRESENT: RRR. ABSENT: diastolic murmur, rubs, systolic murmur Result Laboratory Results: 04/08/18 06:20 04/08/18 06:20 Impressions: Chest X-Ray 04/05/18 00:00 IMPRESSION: NO ACUTE RADIOGRAPHIC FINDING IN THE CHEST. Assessment & Plan - Diagnosis (1) Pre-eclampsia affecting , antepartum Is this a current diagnosis for this admission?: Yes Plan: We plan do deliver at 37 wks or if she meets severe criteria prior to that. I discussed her care with [facility] and they recomended continuing the unless she would develop severe criteria. They did recomend following the the creatinine and deliver if it got to 0.9. There were also concerns for the protein loss with the proteinuria. - Time Time Spent with patient: 15-24 minutes
[2018-04-09 12:43] LABS: ALANINE AMINOTRANSFERASE 24 U/L (9-52); ALBUMIN 2.7 g/dL (3.5-5.0); ALKALINE PHOSPHATASE 121 U/L (38-126); ANION GAP 6 (5-19); ASPARTATE AMINO TRANSFERASE 23 U/L (14-36); BILIRUBIN,DIRECT 0.1 mg/dL (0.0-0.4); BILIRUBIN,TOTAL 0.3 mg/dL (0.2-1.3); BLOOD UREA NITROGEN 13 mg/dL (7-20); CALCIUM 8.6 mg/dL (8.4-10.2); CARBON DIOXIDE 22 mmol/L (22-30); CHLORIDE 109 mmol/L (98-107); GLUCOSE 73 mg/dL (75-110); SODIUM 136.8 mmol/L (137-145)
[2018-04-10] MEDS: FAMOTIDINE 20 MG TABLET PO SCH ×3 (00:14→22:17)
[2018-04-10] MEDS: CALCIUM CARBONATE 500 MG TAB.CHEW PO SCH ×5 (00:14→22:17)
[2018-04-10] MEDS: LABETALOL HCL 200 MG TABLET PO SCH ×3 (00:14→22:17)
[2018-04-10] MEDS: AMOXICILLIN TR/POT CLAVULANATE 500-125 MG TAB PO SCH ×4 (00:14→22:17)
[2018-04-10] MEDS: DIPHENHYDRAMINE HCL 25 MG CAPSULE PO SCH ×2 (00:15→22:17)
[2018-04-10] MEDS: SODIUM CHLORIDE NASAL SPRAY 44 ML NASL SCH ×5 (00:15→22:18)
[2018-04-10] MEDS: FLUTICASONE NASAL SPRAY 50 MCG/SPRY 120 SPRAY/16 GM NASL SCH ×3 (00:15→22:18)
[2018-04-10] MEDS: ACETAMINOPHEN 325 MG TABLET PO PRN ×3 (00:52→22:15)
[2018-04-10 01:01] LABS: HEMATOCRIT 32.5 % (36.0-47.0); HEMOGLOBIN 10.8 g/dL (12.0-15.5); MEAN CORPUSCULAR HEMOGLOBIN 25.2 pg (27.0-33.4); MEAN CORPUSCULAR HGB CONC 33.1 g/dL (32.0-36.0); MEAN CORPUSCULAR VOLUME 76 fl (80-97); PLATELET COUNT 122 10^3/uL (150-450); RED BLOOD COUNT 4.27 10^6/uL (3.72-5.28); RED CELL DISTRIBUTION WIDTH 16.6 % (11.5-14.0); WHITE BLOOD COUNT 10.8 10^3/uL (4.0-10.5)
--- NOTE | 2018-04-10 09:01 | RADIOLOGY REPORT (SQ) ---
EXAM DESCRIPTION: U/S OB LIMITED COMPLETED DATE/TIME: 04/10/2018 8:40 am REASON FOR STUDY: growth and position COMPARISON: None. TECHNIQUE: Limited transabdominal grayscale ultrasound for evaluation of specific requested obstetri ra parameters. LIMITATIONS: None. FINDINGS: . FHR: 137 beats per minute. PRESENTATION: Cephalic. PLACENTA: Not assessed ANATOMY: Not assessed OTHER: Vertex presentation. 35 weeks 0 days. IMPRESSION: LIMITED OBSTETRICAL ULTRASOUND WITH MEASURED PARAMETERS DELINEATED ABOVE. Trimester of : Third trimester - 28 weeks to delivery. TECHNICAL DOCUMENTATION: JOB ID: [id number] [employer]- All Rights Reserved Reading location - IP/workstation name: [email or web address]
[2018-04-10] MEDS: MULTIVITAMINS W-IRON TABLET, CHEWABLE PO SCH (10:59)
--- NOTE | 2018-04-10 10:59 | PDOC PROGRESS REPORT ---
Subjective Progress Note for:: 04/10/18 Subjective:: 27 y/o G1 at 35+1 admitted to antepartum for pre-Eclampsia without severe features. States she is having irregular headaches, no scotoma, no CP. no new SOB. She does report worsening pedal edema. Intermittent nausea, no emesis, tolerating regular diet. Pt reports +FM, no lof, no vag bleeding. SHe had contractions last night but cervix was not dilated. No contractions this AM. Desires BTL if she needs to have a for delivery as she only wants one child and worried about impact of further pregnancies on her kidneys. Reason For Visit: IUP @ 34W3D - PRE-ECLAMPSIA Physical Exam - Physical Exam Vital Signs: Temp Pulse Resp BP Pulse Ox 98.3 F 99 20 129/94 H 100 04/10/18 08:00 04/10/18 08:00 04/10/18 08:00 04/10/18 08:00 04/10/18 08:00 Intake & Output 04/09/18 04/10/18 04/11/18 06:59 06:59 06:59 Intake Total 2100 700 Balance 2100 700 Weight 100 kg 102.5 kg General appearance: PRESENT: no acute distress, well-developed, well-nourished Head exam: PRESENT: normocephalic Respiratory exam: PRESENT: unlabored. ABSENT: accessory muscle use, chest wall tenderness, decreased breath sounds, wheezes Cardiovascular exam: PRESENT: RRR. ABSENT: diastolic murmur, rubs, systolic murmur Pulses: PRESENT: normal radial pulses, +1 pedal pulses bilateral GI/Abdominal exam: PRESENT: normal bowel sounds, soft. ABSENT: ascites, distended, guarding, mass, organolmegaly, rebound, tenderness Extremities exam: PRESENT: +1 edema. ABSENT: calf tenderness, tenderness Musculoskeletal exam: PRESENT: ambulatory, full ROM Neurological exam: PRESENT: alert, awake, oriented to person, oriented to place, oriented to time, oriented to situation. ABSENT: motor sensory deficit Psychiatric exam: PRESENT: appropriate affect, normal mood. ABSENT: homicidal ideation, suicidal ideation Result Laboratory Results: 04/10/18 00:50 04/09/18 11:39 04/09/18 04/10/18 11:39 00:50 WBC 10.8 H RBC 4.27 Hgb 10.8 L Hct 32.5 L MCV 76 L MCH 25.2 L MCHC 33.1 RDW 16.6 H Plt Count 122 L Sodium 136.8 L Potassium 4.0 Chloride 109 H Carbon Dioxide 22 Anion Gap 6 BUN 13 Creatinine 0.57 Est GFR ( Amer) > 60 Est GFR (Non-Af Amer) > 60 Glucose 73 L Calcium 8.6 Total Bilirubin 0.3 AST 23 ALT 24 Alkaline Phosphatase 121 Total Protein 5.0 L Albumin 2.7 L Impressions: Chest X-Ray 04/05/18 00:00 IMPRESSION: NO ACUTE RADIOGRAPHIC FINDING IN THE CHEST. Obstetrics Ultrasound 04/10/18 00:00 IMPRESSION: LIMITED OBSTETRICAL ULTRASOUND WITH MEASURED PARAMETERS DELINEATED ABOVE. Trimester of : Third trimester - 28 weeks to delivery. Assessment & Plan - Diagnosis (1) Pre-eclampsia affecting , antepartum Is this a current diagnosis for this admission?: Yes Plan: Pt is a 27 y/o G1 at 35+1 here for pre-Eclampsia without severe features. Admission on 06 May. complicated by 1 functioning kidney. She received 1 dose of steroids on admission. BPs mild range and highest 157/103, no severe range BPs at this time. 24 hr UP 7000. Hct was 30 on admission, 27.9 on Mar and 32.5 today - concern for possible hemoconcentration. Plts have been downtrending from 165 on admission to 122K on 10 April. MFM was consulted yesterday and recommend delivery if she develops severe features - headache, pulm edema, severe BPs, or Cr >0.9. -continue routine PP care -labetalol 100mg BID -Daily NST, daily CMP/CBC -Continue augmentin for URI -pt strongly desires BTL if she needs a for delivery. SHe has been counseled by Dr. Cole and I completed extensive counseling today for permanent sterilization. MD Breezy - Time Time Spent with patient: 15-24 minutes Medications reviewed and adjusted accordingly: Yes Anticipated discharge: Other - Pt will stay antepartum admission until delivery.
[2018-04-11] MEDS: AMOXICILLIN TR/POT CLAVULANATE 500-125 MG TAB PO SCH (05:31)
[2018-04-11 08:51] LABS: ABSOLUTE LYMPHOCYTES (AUTO) 1.7 10^3/uL (0.5-4.7); ABSOLUTE MONOCYTES (AUTO) 0.5 10^3/uL (0.1-1.4); ABSOLUTE NEUT (AUTO) 5.5 10^3/uL (1.7-8.2); BASOPHILS % (AUTO) 0.2 % (0-2); EOSINOPHILS % (AUTO) 0.4 % (0-6); LYMPHOCYTES % (AUTO) 22.6 % (13-45); MEAN CORPUSCULAR HEMOGLOBIN 25.5 pg (27.0-33.4); MEAN CORPUSCULAR HGB CONC 33.3 g/dL (32.0-36.0); MEAN CORPUSCULAR VOLUME 77 fl (80-97); MONOCYTES % (AUTO) 6.2 % (3-13); PLATELET COUNT 105 10^3/uL (150-450); RED BLOOD COUNT 3.91 10^6/uL (3.72-5.28); RED CELL DISTRIBUTION WIDTH 16.4 % (11.5-14.0); SEGMENTED NEUTROPHILS % (AUTO) 70.6 % (42-78); TOTAL CELLS COUNTED % (AUTO) 100 %; WHITE BLOOD COUNT 7.7 10^3/uL (4.0-10.5)
--- NOTE | 2018-04-11 08:57 | PDOC PROGRESS REPORT ---
Subjective Progress Note for:: 04/11/18 Subjective:: She feels ok today. Reason For Visit: IUP @ 34W3D - PRE-ECLAMPSIA Labs pending but if the platlets are falling we will proceed. Physical Exam - Physical Exam Vital Signs: Temp Pulse Resp BP Pulse Ox 98.8 F 106 H 18 132/88 H 97 04/11/18 04:00 04/11/18 04:00 04/11/18 04:00 04/11/18 04:00 04/11/18 04:00 Intake & Output 04/10/18 04/11/18 04/12/18 06:59 06:59 06:59 Intake Total 700 1800 Output Total 400 Balance 700 1400 Weight 102.5 kg 101.5 kg General appearance: PRESENT: no acute distress, well-developed, well-nourished Result Impressions: Chest X-Ray 04/05/18 00:00 IMPRESSION: NO ACUTE RADIOGRAPHIC FINDING IN THE CHEST. Obstetrics Ultrasound 04/10/18 00:00 IMPRESSION: LIMITED OBSTETRICAL ULTRASOUND WITH MEASURED PARAMETERS DELINEATED ABOVE. Trimester of : Third trimester - 28 weeks to delivery. Assessment & Plan - Diagnosis (1) Pre-eclampsia affecting , antepartum Is this a current diagnosis for this admission?: Yes - Plan Summary Plan Summary: consider delivery if the platelets are still dropping.
[2018-04-11] MEDS: SODIUM CHLORIDE NASAL SPRAY 44 ML NASL SCH ×2 (09:06→11:11)
[2018-04-11] MEDS: FLUTICASONE NASAL SPRAY 50 MCG/SPRY 120 SPRAY/16 GM NASL SCH (09:07)
[2018-04-11] MEDS: MULTIVITAMINS W-IRON TABLET, CHEWABLE PO SCH (09:08)
[2018-04-11] MEDS: CALCIUM CARBONATE 500 MG TAB.CHEW PO SCH ×2 (09:08→11:10)
[2018-04-11] MEDS: FAMOTIDINE 20 MG TABLET PO SCH (09:10)
[2018-04-11 09:11] LABS: ALANINE AMINOTRANSFERASE 24 U/L (9-52); ALBUMIN 2.4 g/dL (3.5-5.0); ALKALINE PHOSPHATASE 130 U/L (38-126); ASPARTATE AMINO TRANSFERASE 24 U/L (14-36); BILIRUBIN,DIRECT 0.1 mg/dL (0.0-0.4); BILIRUBIN,TOTAL 0.3 mg/dL (0.2-1.3); BLOOD UREA NITROGEN 12 mg/dL (7-20); CALCIUM 8.2 mg/dL (8.4-10.2); CARBON DIOXIDE 23 mmol/L (22-30); CHLORIDE 109 mmol/L (98-107); GLUCOSE 69 mg/dL (75-110); TOTAL PROTEIN 4.7 g/dL (6.3-8.2)
[2018-04-11] MEDS: LABETALOL HCL 200 MG TABLET PO SCH (09:15)
[2018-04-11 09:17] LABS: SODIUM 136.5 mmol/L (137-145)
[2018-04-11 09:21] LABS: ANION GAP 5 (5-19)
[2018-04-11] MEDS ORDERED: ONDANSETRON 4 MG TAB.RAPDIS ONE (11:08)
[2018-04-11] MEDS ORDERED: ONDANSETRON HCL INJ/PF 4 MG/2 ML SDV IV ONE (11:30)
[2018-04-11] MEDS ORDERED: ONDANSETRON 4 MG TAB.RAPDIS PO ONE (11:30)
--- NOTE | 2018-04-11 12:16 | PDOC TRANSFER SUMMARY ---
General Admission Date/PCP: 04/05/18 16:45 Admission Date: 04/05/18 Transfer Date: 04/11/18 Accepting Facility: [facility] Accepting Physician: Juana Resuscitation Status: Full Code - Transfer Diagnosis (1) Pre-eclampsia affecting , antepartum Is this a current diagnosis for this admission?: Yes (2) Thrombocytopenia affecting Is this a current diagnosis for this admission?: Yes - Transfer Medications Home Medications: No122/Iron/Folic Acid [ Multi Tablet] 1 each PO DAILY 03/16/18 Acetaminophen [Tylenol] 1,000 mg PO PRN PRN 04/02/18 Labetalol HCl 100 mg PO BID 04/02/18 Transfer Medications: Current Medications Acetaminophen (Tylenol 325 Mg Tablet) 650 mg PO Q6HP PRN PRN Reason: FOR PAIN Stop: 05/06/18 16:20 Last Admin: 04/10/18 22:15 Dose: 650 mg Documented by: Amoxicillin/Clavulanate Potassium (Augmentin 500-125 Tablet) 1 tab PO Q8 [facility] Stop: 04/15/18 13:59 Last Admin: 04/11/18 05:31 Dose: 1 tab Documented by: Calcium Carbonate (Tums Chewable 500 Mg Tab.Chew) 500 mg PO MEALSHS PRINCE Stop: 05/06/18 11:59 Last Admin: 04/11/18 11:10 Dose: 500 mg Documented by: Chlorpheniramine Maleate (Chlor-Trimeton 4 Mg Tablet) 4 mg PO Q6HP PRN PRN Reason: ITCHING Stop: 05/07/18 08:38 Last Admin: 04/08/18 19:33 Dose: 4 mg Documented by: Diphenhydramine HCl (Benadryl 25 Mg Capsule) 25 mg PO QHS PRINCE Stop: 05/06/18 21:59 Last Admin: 04/10/18 22:17 Dose: 25 mg Documented by: Famotidine (Pepcid 20 Mg Tablet) 20 mg PO Q12 [facility] Stop: 05/07/18 09:59 Last Admin: 04/11/18 09:10 Dose: 20 mg Documented by: Fluticasone Propionate (Flonase Nasal Hebo 50 Mcg/Hebo 16 Gm) 1 spray NASL Q12 PRINCE Stop: 05/08/18 21:59 Last Admin: 04/11/18 09:07 Dose: 1 spray Documented by: Guaifenesin (Robitussin Syrup 200 Mg/10 Ml Ud Cup) 200 mg PO Q4HP PRN PRN Reason: COUGH Stop: 05/07/18 08:35 Last Admin: 04/09/18 00:22 Dose: 200 mg Documented by: Labetalol HCl (Normodyne 200 Mg Tablet) 100 mg PO Q12 PRINCE Stop: 05/05/18 20:59 Last Admin: 04/11/18 09:15 Dose: 100 mg Documented by: Multivitamins/Iron (Flintstones Chewable Multivit W/Fe Tab) 2 tab PO DAILY PRINCE Stop: 05/06/18 13:14 Last Admin: 04/11/18 09:08 Dose: 2 tab Documented by: Sodium Chloride ([place] Nasal Hebo 44 Ml Bottle) 1 spray NASL ACHS PRINCE Stop: 05/08/18 10:59 Last Admin: 04/11/18 11:11 Dose: 1 sprays Documented by: - Allergies Allergies/Adverse Reactions: Gadolinium-Containing Contrast Medi Allergy (Verified 04/05/18 15:36) Anaphylaxis Hospital Course Hospital Course: She was admitted for observation with preeclampsia. Her 24 hour urine protein was elevated. She continued further observation to gain maturity. Now she has developed thrombocytopenia with a quick drop in platelets. We have decided to proceed with delivery. Anesthesia was consulted and there are concerns with the low platelets and we are not certain where the bottom of the drop will end. For this reason they recomend transfer. I have discussed this with the patent and . They agree. Dr Arias at [facility] accepts transfer. Physical Exam Vital Signs: Temp Pulse Resp BP Pulse Ox 98.2 F 84 18 150/97 H 96 04/11/18 07:30 04/11/18 07:30 04/11/18 07:30 04/11/18 07:30 04/11/18 07:30 Intake & Output 04/10/18 04/11/18 04/12/18 06:59 06:59 06:59 Intake Total 700 1800 Output Total 400 Balance 700 1400 Weight 102.5 kg 101.5 kg General appearance: PRESENT: no acute distress, well-developed, well-nourished Head exam: PRESENT: atraumatic, normocephalic Respiratory exam: PRESENT: clear to auscultation christopher. ABSENT: rales, rhonchi, wheezes Cardiovascular exam: PRESENT: RRR. ABSENT: diastolic murmur, rubs, systolic murmur Extremities exam: PRESENT: pedal edema Psychiatric exam: PRESENT: appropriate affect, normal mood. ABSENT: homicidal ideation, suicidal ideation Results Laboratory Results: 04/11/18 08:09 04/11/18 08:09 04/11/18 04/11/18 08:09 08:09 WBC 7.7 RBC 3.91 Hgb 10.0 L Hct 30.0 L MCV 77 L MCH 25.5 L MCHC 33.3 RDW 16.4 H Plt Count 105 L Seg Neutrophils % 70.6 Lymphocytes % 22.6 Monocytes % 6.2 Eosinophils % 0.4 Basophils % 0.2 Absolute Neutrophils 5.5 Absolute Lymphocytes 1.7 Absolute Monocytes 0.5 Absolute Eosinophils 0.0 Absolute Basophils 0.0 Sodium 136.5 L Potassium 4.0 Chloride 109 H Carbon Dioxide 23 Anion Gap 5 BUN 12 Creatinine 0.55 Est GFR ( Amer) > 60 Est GFR (Non-Af Amer) > 60 Glucose 69 L Calcium 8.2 L Total Bilirubin 0.3 AST 24 ALT 24 Alkaline Phosphatase 130 H Total Protein 4.7 L Albumin 2.4 L Impressions: Chest X-Ray 04/05/18 00:00 IMPRESSION: NO ACUTE RADIOGRAPHIC FINDING IN THE CHEST. Obstetrics Ultrasound 04/10/18 00:00 IMPRESSION: LIMITED OBSTETRICAL ULTRASOUND WITH MEASURED PARAMETERS DELINEATED ABOVE. Trimester of : Third trimester - 28 weeks to delivery. Plan Discharge Plan: We plan transfer for delivery. Time Spent: Greater than 30 Minutes
[2018-04-11 12:28] VITALS: BP 149/92
--- NOTE | 2018-06-09 08:53 | Admission Physical ---
Datetime Report Generated by CPN: 06/09/2018 08:53 CURRENT ADMISSION Chief Complaint: Sent from OB Office for Evaluation and Treatment - Please Specify Chief Complaint: Sent from OB Office for Evaluation and Treatment - Please Specify Indication for Induction: PreEclampsia Indication for Induction: PreEclampsia Admit Impression : , Intrauterine ; Intact Membranes Admit Impression : , Intrauterine ; Intact Membranes Admit Plan: Admit to Unit; Observation/Evaluation Admit Plan: Admit to Unit; Observation/Evaluation ALLERGIES Medication Allergies: Yes Medication Allergies: Gadolinium-Containing Contrast Medi/Anaphylaxis (04/05/2018) Medication Allergies: Gadolinium-Containing Contrast Medi/Anaphylaxis (04/02/2018) Medication Allergies: Gadolinium-Containing Contrast Medi/Anaphylaxis (03/30/2018) Medication Allergies: Gadolinium-Containing Contrast Medi/Anaphylaxis (03/26/2018) Medication Allergies: Gadolinium-Containing Contrast Medi/Anaphylaxis (03/16/2018) Medication Allergies: Gadolinium-Containing Contrast Medi/Anaphylaxis (10/06/2017) Latex: No Latex Allergies Food Allergies: none Environmental Allergies: none OBSTETRICAL HISTORY EDC: 05/14/2018 00:00 : 1 Para: 0 Term: 0 : 0 SAB: 0 IAB: 0 Ectopic: 0 Livin Cesareans: 0 VBACs: 0 Multiple Births: 0 Gestational Diabetes: No Rh Sensitization: No Incompetent Cervix: No BRENDEN: No Infertility: No Uterine Anomaly: No IUGR: No Hx Previous C/S: No Macrosomia: No Hx Loss/Stillborn: No PIH: No Hx : No Placenta Previa/Abruption: No Depression/PP Depression: No PTL/PROM: No Post Hemorrhage: No Current Procedures: Ultrasound; BPP Obstetrical History Comments: G1- current SEE RECORDS Alcohol: No Marijuana : No Cocaine: No Other Illicit Drugs: No Cigarettes: Never Smoker. [id number] MEDICAL HISTORY Diabetes: No Hypertension: No Heart Disease: No Hosp/Surgery: Yes Kidney Disease: Yes Medical History Comments: pt states has one functioning kidney due to UTI not being tx for 6 months several years ago, kidney infection and sepsis-2012, PNA, INFECTIOUS HISTORY Genital Herpes: No Chlamydia: No Tuberculosis: No Syphilis: No Hepatitis: No HIV/AIDS Exposure: No Rash or Viral Illness: No HPV: No PHYSICAL EXAM General: Normal General: Normal HEENT: Normal HEENT: Normal Neurologic: Normal Neurologic: Normal Thyroid: Normal Thyroid: Normal Heart: Normal Heart: Normal Lungs: Normal Lungs: Normal Breast: Deferred Breast: Deferred Back: Normal Back: Normal Abdomen: Normal Abdomen: Normal Genitourinary Exam: Normal Genitourinary Exam: Normal Extremities: Normal Extremities: Normal DTRs: Normal DTRs: Normal Pelvic Type: Adequate Pelvic Type: Adequate Physical Exam Comments: one funtional kidney Physical Exam Comments: one funtional kidney Vital Signs: Reviewed Vital Signs: Reviewed MEMBRANES Pooling: Negative Pooling: Negative Membranes: Intact Membranes: Intact FETUS A EGA: 34.3 Monitoring: External US Monitoring: External US FHR- Baseline: 120 FHR- Baseline: 120 Variability: Moderate 6-25bpm Variability: Moderate 6-25bpm Decelerations: None Decelerations: None FHR Category: Category I FHR Category: Category I Admit Comment: Pt with preeclamsia. Monitor for severe features. Some complaints of shortness of breath but fine now. Normal CXR Admit Comment: Pt with preeclamsia. Monitor for severe features. Some complaints of shortness of breath but fine now. Normal CXR PLANS FOR LABOR AND DELIVERY Labor and Delivery: None Pain Management: Epidural Feeding Preference: Breast Benefit of Breast Feed Discussed: Yes Circumcision: N/A INFORMED CONSENT Signature: with User ID: [email or web address]
--- NOTE | 2018-06-09 09:03 | Delivery Summary ---
Del Sum A-C Datetime Report Generated by CPN: 06/09/2018 09:03 DELIVERY PERSONNEL DELIVERY PERSONNEL: [id number] LABOR SUMMARY EDC: 05/14/2018 00:00 No. Babies in Womb: 1 LABOR INFORMATION Group B Beta Strep: 1 GROUP B BETA HEMOLYTIC STREPTOCOCCUS RECOVERED
--- NOTE | 2018-06-09 09:04 | Admission Physical ---
Datetime Report Generated by CPN: 06/09/2018 09:03 CURRENT ADMISSION Chief Complaint: Sent from OB Office for Evaluation and Treatment - Please Specify Indication for Induction: PreEclampsia Admit Impression : , Intrauterine ; Intact Membranes Admit Plan: Admit to Unit; Observation/Evaluation ALLERGIES Medication Allergies: Yes Medication Allergies: Gadolinium-Containing Contrast Medi/Anaphylaxis (04/05/2018) Medication Allergies: Gadolinium-Containing Contrast Medi/Anaphylaxis (04/02/2018) Medication Allergies: Gadolinium-Containing Contrast Medi/Anaphylaxis (03/30/2018) Medication Allergies: Gadolinium-Containing Contrast Medi/Anaphylaxis (03/26/2018) Latex: No Latex Allergies Food Allergies: none Environmental Allergies: none OBSTETRICAL HISTORY EDC: 05/14/2018 00:00 : 1 Para: 0 Term: 0 : 0 SAB: 0 IAB: 0 Ectopic: 0 Livin Cesareans: 0 VBACs: 0 Multiple Births: 0 Gestational Diabetes: No Rh Sensitization: No Incompetent Cervix: No BRENDEN: No Infertility: No Uterine Anomaly: No IUGR: No Hx Previous C/S: No Macrosomia: No Hx Loss/Stillborn: No PIH: No Hx : No Placenta Previa/Abruption: No Depression/PP Depression: No PTL/PROM: No Post Hemorrhage: No Current Procedures: Ultrasound; BPP Obstetrical History Comments: G1- current SEE RECORDS Alcohol: No Marijuana : No Cocaine: No Other Illicit Drugs: No Cigarettes: Never Smoker. 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 for 6 months several years ago, kidney infection and sepsis-2012, PNA-2014, INFECTIOUS HISTORY Genital Herpes: No Chlamydia: No Tuberculosis: No Syphilis: No Hepatitis: No HIV/AIDS Exposure: No Rash or Viral Illness: No HPV: No PHYSICAL EXAM General: Normal HEENT: Normal Neurologic: Normal Thyroid: Normal Heart: Normal Lungs: Normal Breast: Deferred Back: Normal Abdomen: Normal Genitourinary Exam: Normal Extremities: Normal DTRs: Normal Pelvic Type: Adequate Physical Exam Comments: one funtional kidney Vital Signs: Reviewed MEMBRANES Pooling: Negative Pooling: Negative Membranes: Intact Membranes: Intact FETUS A EGA: 34.3 Monitoring: External US FHR- Baseline: 120 Variability: Moderate 6-25bpm Variability: Moderate 6-25bpm Decelerations: None Decelerations: None FHR Category: Category I FHR Category: Category I Admit Comment: Pt with preeclamsia. Monitor for severe features. Some complaints of shortness of breath but fine now. Normal CXR PLANS FOR LABOR AND DELIVERY Labor and Delivery: None Pain Management: Epidural Feeding Preference: Breast Benefit of Breast Feed Discussed: Yes Circumcision: N/A INFORMED CONSENT Signature: with User ID: [email or web address]
== END 2018-04-11 14:29 | disposition short-term general hospital (02) | DRG 831 ==
LOC: LC 15:24 → LR 16:45 → 2S 04-06 10:37
PROVIDERS: ADMIT Obstetrics & Gynecology; ATTEND Obstetrics & Gynecology
DX: O14.93 Unspecified pre-eclampsia, third trimester (principal); O99.42 Diseases of the circulatory system complicating childbirth; O99.12 Other diseases of the blood and blood-forming organs and certain disorders involving the immune mechanism complicating childbirth; O13.3 Gestational [pregnancy-induced] hypertension without significant proteinuria, third trimester; D69.6 Thrombocytopenia, unspecified; O99.89 Other specified diseases and conditions complicating pregnancy, childbirth and the puerperium; N28.9 Disorder of kidney and ureter, unspecified; O99.52 Diseases of the respiratory system complicating childbirth; J20.9 Acute bronchitis, unspecified; J01.90 Acute sinusitis, unspecified; H65.91 Unspecified nonsuppurative otitis media, right ear; R00.0 Tachycardia, unspecified; O99.02 Anemia complicating childbirth; D50.9 Iron deficiency anemia, unspecified; O99.824 Streptococcus B carrier state complicating childbirth; Z3A.34 34 weeks gestation of pregnancy
CPT/HCPCS: 36415; 59025; 71046; 76815; 80053; 80307; 82570; 83615; 84156; 84550; 85025; 85027; 87077; 87081; 93005; 93010; 94760; 96372; J0702; J3490; S0119